=== PATIENT | male | born 1975 | race Two or more races ===

== ENCOUNTER 2017-05-16 17:45 | Emergency (ER) | payer OTHER ==
[2017-05-16 18:00] VITALS: TEMP 99.2; BMI 25.1
[2017-05-16] MEDS ORDERED: ONDANSETRON 4 MG/2 ML VIAL IVPB ONE (18:20)
[2017-05-16] MEDS ORDERED: MAG HYDROX/AL HYDROX/SIMETH 355 ML ORAL.SUSP PO ONE (18:20)
[2017-05-16] MEDS ORDERED: FAMOTIDINE 20 MG/50 ML IVPB 20 MG in PREMIX 50 IVPB ONE (18:20)
[2017-05-16] MEDS ORDERED: SODIUM CHLORIDE 1,000 ML IV ONE (18:26)
--- NOTE | 2017-05-16 18:26 | PDOC ---
History of Present Illness - History of Present Illness Initial Comments: 05/16/17 18:57 The patient is a 41-year-old male with a significant past medical history of gastritis, who presents to the emergency department with abdominal pain for 3 days. He states he went to [facility] 3 days ago where he had blood tests and IV fluids. He received some meds but did not feel significantly better. He also went to see his PCP as the abdominal pain worsened, and they sent him to the ED for evaluation. He describes the pain as a knot located in the epigastric region , constant, burning, non-radiating, and worsened with activity. He also reports he has been vomiting a yellow substance for 3 days. He states it is difficult to breath secondary to pain. He reports he started taking a medication for his gastritis yesterday (unable to recall name of medication). The patient denies chest pain, HOU, leg swelling, headache and dizziness. No associated numbness/tingling/weakness. The patient denies fever, chills, diarrhea and constipation. The patient denies dysuria, frequency, urgency and hematuria. Family History: NM (father) Allergies: NKDA Past Surgical History: None reported Social History: former smoker, no other toxic habits PCP: Dr. Jimenez <Izzy Glass - Last Filed: 05/16/17 18:57> - General History Source: Patient Exam Limitations: No Limitations - History of Present Illness Travel History: No <Migel James - Last Filed: 05/16/17 19:03> - General Chief Complaint: Pain Stated Complaint: STOMACH PAIN Time Seen by Provider: 05/16/17 17:48 Past History <Izzy Glass - Last Filed: 05/16/17 18:57> - Past Medical History Asthma: Yes COPD: No Diabetes: No HTN: No - Immunization History Td Vaccination: (2010) - Suicide/Smoking/Psychosocial Hx Smoking Status: Yes Smoking History: Never smoked Have you smoked in the past 12 months: No Number of Cigarettes Smoked Daily: 10 Information on smoking cessation initiated: No Hx Alcohol Use: No Drug/Substance Use Hx: No Substance Use Type: None <Migel James - Last Filed: 05/16/17 19:03> - Past Medical History Allergies/Adverse Reactions: Allergies Allergy/AdvReac Type Severity Reaction Status Date / Time No Known Allergies Allergy Verified 05/16/17 18:00 Home Medications: Ambulatory Orders Albuterol Sulfate Inhaler - [Ventolin Hfa *Inhaler*] 1 - 2 inh IH QID PRN Amox-Tr/K Cl [Augmentin 250Mg] 1 each PO TID #21 tablet 08/03/12 Oxycodone HCl/Acetaminophen [Percocet 5-325 mg Tablet] 1 - 2 combo PO Q6H #14 tablet 08/03/12 Review of Systems - Review of Systems Able to Perform ROS?: Yes Comments:: 05/16/17 18:58 All other systems reviewed and are negative except noted in HPI <Izzy Glass - Last Filed: 05/16/17 18:57> *Physical Exam - Vital Signs Last Vital Signs Temp Pulse Resp BP Pulse Ox 99.2 F 108 H 18 187/99 100 05/16/17 17:45 05/16/17 17:45 05/16/17 17:45 05/16/17 17:45 05/16/17 17:45 - Physical Exam Comments: 05/16/17 18:58 GENERAL: The patient is awake, alert, and fully oriented, uncomfortable appearing due to pain HEAD: Normocephalic, atraumatic. EYES: extraocular movements intact, sclera anicteric, conjunctiva clear. ENT: Normal voice, Moist mucous membranes. NECK: Normal range of motion, supple LUNGS: Breath sounds equal, clear to auscultation bilaterally. No wheezes, no rhonchi, no rales. HEART: Regular rate and rhythm, normal S1 and S2 without murmur, rub or gallop. ABDOMEN: epigastric tenderness, no rebound/guarding EXTREMITIES: Normal range of motion, no edema. No clubbing or cyanosis. No cords, erythema, or tenderness. NEUROLOGICAL: No facial assymetry, Normal speech, PSYCH: Normal mood, normal affect. SKIN: Warm, Dry, normal turgor, <Izzy Glass - Last Filed: 05/16/17 18:57> - Vital Signs Last Vital Signs Temp Pulse Resp BP Pulse Ox 99.2 F 108 H 18 187/99 100 05/16/17 17:45 05/16/17 17:45 05/16/17 17:45 05/16/17 17:45 05/16/17 17:45 <Migel James - Last Filed: 05/16/17 19:03> Heart Score/ECG Review - ECG Impressions Comment:: 05/16/17 19:02 Twelve-lead EKG was performed and reviewed by me. There is normal sinus rhythm with a normal rate. Rate of 61 The axis is normal. UT interval of [address] changes suggestive of ischemia <Migel James - Last Filed: 05/16/17 19:03> ED Treatment Course - LABORATORY CBC & Chemistry Diagram: 05/16/17 18:40 05/16/17 18:40 - ADDITIONAL ORDERS Additional order review: 05/16/17 18:40 RBC 5.28 MCV 90.1 MCHC 33.3 RDW 13.2 MPV 7.5 Neutrophils % 62.3 Lymphocytes % 26.8 Monocytes % 10.4 H Eosinophils % 0.0 Basophils % 0.5 <Izzy Glass - Last Filed: 05/16/17 18:57> - LABORATORY CBC & Chemistry Diagram: 05/16/17 18:40 05/16/17 18:40 - RADIOLOGY Radiology Studies Ordered: Category Date Time Status CHEST X-RAY PORTABLE* [RAD] Stat Radiology 05/16/17 18:20 Ordered <Migel James - Last Filed: 05/16/17 19:03> Medical Decision Making - Medical Decision Making 05/16/17 18:26 41yM hx of gastritis presents with epgiastric pain x 3 days. Patient <Migel James - Last Filed: 05/16/17 19:03> *DC/Admit/Observation/Transfer - Attestations Scribe Attestion: 05/16/17 18:58 Documentation prepared by Izzy Glass, acting as manager medical device for Migel James MD, /DO. <Izzy Glass - Last Filed: 05/16/17 18:57>
[2017-05-16] MEDS ORDERED: FAMOTIDINE 20 MG/50 ML IVPB 20 MG/50 ML MG IVPB ONE (18:28)
[2017-05-16] MEDS ORDERED: ONDANSETRON 4 MG/2 ML VIAL ONE (18:28)
[2017-05-16] MEDS ORDERED: MAG HYDROX/AL HYDROX/SIMETH 30 ML UNIT-DOSE CUP ONE (18:28)
[2017-05-16 18:47] LABS: BASO % 0.5 % (0-2.0); HEMATOCRIT 47.6 % (35.4-49); HEMOGLOBIN 15.9 GM/dL (11.7-16.9); LYMPH % 26.8 % (8-40); MCHC 33.3 g/dl (32.0-35.9); MEAN CELL VOLUME 90.1 fl (80-96); MEAN PLT VOLUME 7.5 fl (7.5-11.1); MONO % 10.4 % (3.8-10.2); NEUT % 62.3 % (42.8-82.8); PLATELET COUNT 264 K/MM3 (134-434); RBC 5.28 M/mm3 (4.00-5.60); RDW 13.2 % (11.9-15.9); WHITE BLOOD COUNT 14.9 K/mm3 (4.0-10.0)
[2017-05-16 19:05] LABS: URINE APPEARANCE CLEAR; URINE BILIRUBIN NEGATIVE (NEGATIVE); URINE BLOOD NEGATIVE (NEGATIVE); URINE COLOR YELLOW; URINE GLUCOSE (UA) NEGATIVE (NEGATIVE); URINE KETONE 1+ (NEGATIVE); URINE LEUK ESTERASE NEGATIVE (NEGATIVE); URINE NITRITE NEGATIVE (NEGATIVE); URINE UROBILINOGEN 4.0 E.U/dl mg/dL (0.2-1.0)
[2017-05-16 19:09] LABS: URINE PROTEIN 1+ (NEGATIVE)
[2017-05-16 19:10] LABS: URINE MUCUS FEW
[2017-05-16 19:16] LABS: ANION GAP 10 (8-16); BILIRUBIN,TOTAL 0.8 mg/dL (0.2-1.0); BLOOD UREA NITROGEN 18 mg/dL (7-18); CALCIUM 8.6 mg/dL (8.5-10.1); CHLORIDE 103 mmol/L (98-107); CO2 27 mmol/L (21-32); GLUCOSE,RANDOM 97 mg/dL (74-106); LIPASE 76 U/L (73-393); POTASSIUM 3.4 mmol/L (3.5-5.1); SGOT/AST 12 U/L (15-37); SGPT/ALT 21 U/L (12-78); SODIUM 140 mmol/L (136-145); TOT PROT 7.3 g/dl (6.4-8.2)
[2017-05-16 19:19] LABS: ALK PHOS 105 U/L (45-117)
[2017-05-16 19:32] LABS: INR 1.1 (0.82-1.09); PROTHROMBIN TIME (PATIENT) 12.4 SEC (9.98-11.88)
[2017-05-16] MEDS ORDERED: MORPHINE SULFATE 10 MG/1 ML *VIAL ONE (19:58)
[2017-05-16] MEDS ORDERED: morphine CARPU-JECT 4 MG/1 ML DISP.SYRIN IVPUSH ONE (19:58)
[2017-05-16 20:54] VITALS: BP 150/82; PULSE 76
--- NOTE | 2017-05-16 21:19 | PDOC ---
*Physical Exam - Vital Signs Last Vital Signs Temp Pulse Resp BP Pulse Ox 99.2 F 76 16 150/82 100 05/16/17 17:45 05/16/17 20:53 05/16/17 20:53 05/16/17 20:53 05/16/17 19:09 ED Treatment Course - LABORATORY CBC & Chemistry Diagram: 05/16/17 18:40 05/16/17 18:40 - ADDITIONAL ORDERS Additional order review: Laboratory Results 05/16/17 05/16/17 05/16/17 18:50 18:40 18:40 PT with INR 12.40 H INR 1.10 Sodium 140 Potassium 3.4 L Chloride 103 Carbon Dioxide 27 Anion Gap 10 BUN 18 Creatinine 1.0 Creat Clearance w eGFR > 60 Random Glucose 97 Calcium 8.6 Total Bilirubin 0.8 AST 12 L ALT 21 Alkaline Phosphatase 105 Creatine Kinase 253 Creatine Kinase Index 0.3 CK-MB (CK-2) < 1.000 Troponin I < 0.02 Total Protein 7.3 Albumin 4.0 Lipase 76 Urine Color Yellow Urine Appearance Clear Urine pH 7.0 Ur Specific [place] 1.027 Urine Protein 1+ H Urine Glucose (UA) Negative Urine Ketones 1+ H Urine Blood Negative Urine Nitrite Negative Urine Bilirubin Negative Urine Urobilinogen 4.0 e.u/dl Ur Leukocyte Esterase Negative Urine WBC (Auto) 1 Urine RBC (Auto) 2 Urine Mucus Few 05/16/17 18:40 RBC 5.28 MCV 90.1 MCHC 33.3 RDW 13.2 MPV 7.5 Neutrophils % 62.3 Lymphocytes % 26.8 Monocytes % 10.4 H Eosinophils % 0.0 Basophils % 0.5 - Medications Given in the ED: ED Medications Discontinued Medications Generic Name Dose Route Start Last Admin Trade Name Freq PRN Reason Stop Dose Admin Al Hydroxide/Mg Hydroxide 30 ml 05/16/17 18:20 05/16/17 18:58 Mylanta Suspension - PO 05/16/17 18:21 30 ml ONCE ONE Administration Famotidine/Sodium Chloride 20 50 mls @ 100 mls/hr 05/16/17 18:20 05/16/17 18: 59 mg/ Miscellaneous IVPB 05/16/17 18:49 100 mls/hr ONCE ONE Administration Sodium Chloride 1,000 mls @ 1,000 mls/hr 05/16/17 18:26 05/16/17 18:59 Normal Saline - IV 05/16/17 19:25 1,000 mls/hr .Q1H ONE Administration Morphine Sulfate 4 mg 05/16/17 19:58 05/16/17 20:00 Morphine Injection - IVPUSH 05/16/17 19:59 4 mg ONCE ONE Administration Ondansetron HCl 4 mg 05/16/17 18:20 05/16/17 18:59 Zofran Injection IVPB 05/16/17 18:21 4 mg ONCE ONE Administration Medical Decision Making - Medical Decision Making 05/16/17 21:18 Ct scan of abd/pel is negative for any pathology. Pt lab work is negative as well. Pt to follow up with his pcp and GI. Rx Zantac *DC/Admit/Observation/Transfer Diagnosis at time of Disposition: PUD (peptic ulcer disease) Gastritis Qualifiers: Gastritis type: unspecified gastritis Chronicity: unspecified Gastritis bleeding: without bleeding Qualified Code(s): K29.70 - Gastritis, unspecified, without bleeding - Discharge Dispostion Disposition: HOME Condition at time of disposition: Stable Admit: No - Prescriptions Prescriptions: Ranitidine HCl [Zantac] 300 mg PO DAILY #30 tablet - Referrals Referrals: Eulalia Jimenez MD [Primary Care Provider] - Tommie Rodriguez MD [Staff Physician] - - Patient Instructions Printed Discharge Instructions: DI for Peptic Ulcer - Post Discharge Activity Forms/Work/School Notes: Back to Work
--- NOTE | 2017-05-17 11:06 | EKG ---
Test Reason : Blood Pressure : / mmHG Vent. Rate : 061 BPM Atrial Rate : 061 BPM P-R Int : 092 ms QRS Dur : 094 ms QT Int : 436 ms P-R-T Axes : 008 080 073 degrees QTc Int : 438 ms SINUS RHYTHM WITH SHORT WI VOLTAGE CRITERIA FOR LEFT VENTRICULAR HYPERTROPHY ABNORMAL ECG WHEN COMPARED WITH ECG OF 22-AUG-2003 11:01, QT HAS LENGTHENED Confirmed by DARRYL MARTIN, VENKATESH ([id number]) on 05/17/2017 11:06:03 AM Referred By: Confirmed By:VENKATESH ANDREWS MD
== END 2017-05-16 21:29 | disposition home or self-care (01) ==
LOC: JER 17:45
PROC: 3E0337Z Introduction of Electrolytic and Water Balance Substance into Peripheral Vein, Percutaneous Approach (ICD-10-PCS; principal; 2017-05-16)
PROC: 3E033GC Introduction of Other Therapeutic Substance into Peripheral Vein, Percutaneous Approach (ICD-10-PCS; 2017-05-16)
PROC: 3E033NZ Introduction of Analgesics, Hypnotics, Sedatives into Peripheral Vein, Percutaneous Approach (ICD-10-PCS; 2017-05-16)
DX: K27.9 Peptic ulcer, site unspecified, unspecified as acute or chronic, without hemorrhage or perforation (principal); K29.70 Gastritis, unspecified, without bleeding
CPT/HCPCS: 36415; 71045-TC-FY; 74177-TC; 80053; 81003; 81015; 82550; 82553; 83690; 84484; 85025; 85610; 93005; 93010; 96361; 96365; 96375; 99285-25

== ENCOUNTER 2017-09-11 16:35 | Emergency (ER) | payer OTHER ==
[2017-09-11 16:47] VITALS: BP 172/98; PULSE 73; TEMP 97.9; BMI 25.1
--- NOTE | 2017-09-11 16:48 | PDOC ---
Rapid Medical Evaluation Time Seen by Provider: 09/11/17 16:43 Medical Evaluation: Allergies Allergy/AdvReac Type Severity Reaction Status Date / Time No Known Allergies Allergy Verified 05/16/17 18:00 09/11/17 16:46 I have performed a brief in-person evaluation of this patient. The patient presents with a chief complaint of:epigastric pain with n/v/d, h/o gastritis Pertinent physical exam findings:tenderness in epigastric region, pt appears to be in pain I have ordered the following: labs, ua,ekg The patient will proceed to the ED for further evaluation. 09/11/17 19:30
[2017-09-11 18:09] LABS: HEMATOCRIT 49.8 % (35.4-49); HEMOGLOBIN 16.7 GM/dL (11.7-16.9); MCHC 33.5 g/dl (32.0-35.9); MEAN CELL VOLUME 89.6 fl (80-96); MEAN PLT VOLUME 7.4 fl (7.5-11.1); PLATELET COUNT 299 K/MM3 (134-434); RBC 5.56 M/mm3 (4.00-5.60); RDW 13.4 % (11.9-15.9); WHITE BLOOD COUNT 20.1 K/mm3 (4.0-10.0)
[2017-09-11 18:42] LABS: AMYLASE 60 U/L (25-115); LIPASE 63 U/L (73-393)
[2017-09-11 18:43] LABS: ANION GAP 10 (8-16); BLOOD UREA NITROGEN 15 mg/dL (7-18); CALCIUM 9.3 mg/dL (8.5-10.1); CHLORIDE 102 mmol/L (98-107); CO2 27 mmol/L (21-32); CREATININE 0.9 mg/dL (0.7-1.3); GLUCOSE,RANDOM 104 mg/dL (74-106); POTASSIUM 3.3 mmol/L (3.5-5.1); SODIUM 139 mmol/L (136-145)
[2017-09-11 18:46] LABS: ALBUMIN 4.3 g/dl (3.4-5.0); BILIRUBIN,DIRECT 0.2 mg/dL (0.0-0.2); BILIRUBIN,TOTAL 0.7 mg/dL (0.2-1.0); TOT PROT 7.9 g/dl (6.4-8.2)
== END 2017-09-11 19:05 | disposition left against medical advice (07) ==
LOC: JER 16:35
DX: Z53.21 Procedure and treatment not carried out due to patient leaving prior to being seen by health care provider (principal)
CPT/HCPCS: 36415; 80048; 80076; 82150; 83690; 85027; 99281-25

== ENCOUNTER 2023-08-19 07:42 | Emergency (ER) | payer OTHER ==
[2023-08-19 08:13] VITALS: BP 140/96; PULSE 71; RESP 20; TEMP 98.2; BMI 27.8
[2023-08-19 09:16] LABS: BASO % 0.8 % (0-2.0); EOS % 0.1 % (0-4.5); HEMATOCRIT 48.4 % (35.4-49); HEMOGLOBIN 16.3 GM/dL (11.7-16.9); LYMPH % 38.1 % (8-40); MCH 30.4 pg (25.7-33.7); MCHC 33.7 g/dl (32.0-35.9); MEAN CELL VOLUME 90.4 fl (80-96); MEAN PLT VOLUME 7.1 fl (7.5-11.1); MONO % 12.4 % (3.8-10.2); NEUT % 48.6 % (42.8-82.8); PLATELET COUNT 225 10^3/uL (134-434); RBC 5.35 M/mm3 (4.00-5.60); RDW 13.5 % (11.9-15.9)
[2023-08-19] MEDS ORDERED: ACETAMINOPHEN INJECTION 100 ML IVPB ONE (09:18)
[2023-08-19] MEDS ORDERED: ALBUTEROL SO4 2.5/IPRATROPIUM 0.5 INH SOL 3 ML VIAL.NEB. NEB ONE (09:18)
[2023-08-19] MEDS ORDERED: FAMOTIDINE 20 MG/50 ML IVPB 20 MG/50 ML MG IVPB ONE (09:18)
[2023-08-19] MEDS ORDERED: MAG HYDROX/AL HYDROX/SIMETH 30 ML UNIT-DOSE CUP ONE (09:18)
[2023-08-19] MEDS: ACETAMINOPHEN 1000 MG/100 ML BAG IVPB ONE (09:24)
[2023-08-19] MEDS: FAMOTIDINE 20 MG/50 ML IVPB 20 MG/50 ML MG IVPB ONE (09:24)
[2023-08-19] MEDS: MAG HYDROX/AL HYDROX/SIMETH 30 ML UNIT-DOSE CUP PO ONE (09:24)
[2023-08-19] MEDS: ALBUTEROL SO4 2.5/IPRATROPIUM 0.5 INH SOL 3 ML VIAL.NEB. NEB ONE (09:24)
[2023-08-19 09:28] LABS: ALBUMIN 3.4 g/dl (3.4-5.0); BLOOD UREA NITROGEN 13.8 mg/dL (7-18); CALCIUM 9.3 mg/dL (8.5-10.1)
[2023-08-19 09:32] LABS: CREATININE 0.8 mg/dL (0.55-1.3)
[2023-08-19 09:33] LABS: TOT PROT 7.2 g/dl (6.4-8.2)
== END 2023-08-19 11:27 | disposition home or self-care (01) ==
LOC: JER 07:42
PROC: 3E033GC Introduction of Other Therapeutic Substance into Peripheral Vein, Percutaneous Approach (ICD-10-PCS; principal; 2023-08-19)
PROC: 3E033GC Introduction of Other Therapeutic Substance into Peripheral Vein, Percutaneous Approach (ICD-10-PCS; 2023-08-19)
PROC: 3E0F7GC Introduction of Other Therapeutic Substance into Respiratory Tract, Via Natural or Artificial Opening (ICD-10-PCS; 2023-08-19)
DX: R07.89 Other chest pain (principal); R11.10 Vomiting, unspecified; R06.02 Shortness of breath; Z20.822 Contact with and (suspected) exposure to COVID-19
CPT/HCPCS: 0241U-QW; 36415; 71046-TC-FY; 80053; 83690; 84484; 85025; 93005; 93010; 99285-25; J0131